=== PATIENT | female | born 1940 | race Caucasian/White ===

== ENCOUNTER 2018-01-29 13:32 | Inpatient (IN) ==
[2018-01-29 15:44] LABS: Apearance,Urine CLEAR (Clear); Bilirubin,Urine Negative (Negative); Blood, Urine Negative (Negative); Glucose,Urine (UA) Negative (Negative); Ketones,Urine Negative (Negative); Nitrite,Urine Negative (Negative); Protein,Urine Negative; RBC,Urine <1 /HPF (0-4); Squamous Epithelial Cell,Urine Occasional /HPF (0-10); Urine Color Yellow (Yellow); Urine Specific Gravity 1.003 (1.001-1.035); WBC,Urine 3 /HPF (0-6)
[2018-01-29] MEDS ORDERED: LEVOFLOXACIN INJ 500 MG in PREMIX 1 EACH IV STA (17:08)
[2018-01-29] MEDS ORDERED: LEVOFLOXACIN INJ 100 ML IV ONE (17:13)
[2018-01-29] MEDS ORDERED: PROMETHAZINE 25 MG/1 ML VIAL IM PRN (17:13)
[2018-01-29] MEDS ORDERED: GLUCAGON 1 MG VIAL IM PRN (17:47)
[2018-01-29] MEDS ORDERED: DEXTROSE 50% 25 GM/50 ML VIAL IV PRN (17:47)
[2018-01-29 17:59] LABS: Albumin 2.4 G/DL (3.4-5.0); Bilirubin,Direct 0.3 MG/DL (0.0-0.20); Bilirubin,Indirect 0.3 MG/DL (0.0-1.0); Bilirubin,Total 0.6 MG/DL (0.2-1.0); Total Protein 7.4 G/DL (6.4-8.3)
[2018-01-29] MEDS ORDERED: ACETAMINOPHEN 500 MG TABLET PO PRN (19:38)
[2018-01-29] MEDS ORDERED: MONTELUKAST 10 MG TABLET PO PRN (19:38)
[2018-01-29] MEDS ORDERED: CYANOCOBALAMIN 1000 MCG/1 ML VIAL IM SCH (20:00)
[2018-01-29] MEDS: metroNIDAZOLE INJ 500 MG in PREMIX 1 EACH IV SCH (20:49)
[2018-01-29] MEDS: SODIUM CHLORIDE 0.9% 1,000 ML IV SCH (20:49)
[2018-01-29] MEDS: ACETAMINOPHEN 325 MG TABLET PO PRN ×2 (20:53→23:12)
[2018-01-29] MEDS ORDERED: COLCHICINE 0.6 MG TABLET PO PRN (21:00)
[2018-01-29 22:53] LABS: Thyroid Stimulating Hormone 3.11 uIU/ml (0.358-3.74)
[2018-01-29] MEDS: ASPIRIN EC 81 MG TABLET PO SCH (23:03)
[2018-01-29] MEDS: cefOXitin 2,000 MG in SYRINGE 1 EACH IV SCH (23:05)
[2018-01-29] MEDS: MULTIVITAMIN (BEROCCA) TABLET PO SCH (23:06)
[2018-01-29] MEDS: INSULIN LISPRO 100 UNIT/ML SUBCUT SCH (23:06)
[2018-01-29] MEDS: FERROUS SULFATE 325 MG TABLET PO SCH (23:06)
[2018-01-29] MEDS: CHOLECALCIFEROL 1,000 UNIT TABLET PO SCH (23:06)
[2018-01-29] MEDS: MAGNESIUM OXIDE 400 MG TABLET PO SCH (23:06)
[2018-01-29] MEDS: GABAPENTIN 300 MG CAPSULE PO SCH (23:06)
[2018-01-29] MEDS: CARVEDILOL 12.5 MG TABLET PO SCH (23:12)
[2018-01-29 23:40] LABS: Lactic Acid 0.8 MMOL/L (0.4-2.0)
[2018-01-30] MEDS: ACETAMINOPHEN 325 MG TABLET PO PRN ×2 (01:53→16:07)
[2018-01-30] MEDS: GABAPENTIN 300 MG CAPSULE PO SCH ×2 (01:56→20:55)
[2018-01-30] MEDS: metroNIDAZOLE INJ 500 MG in PREMIX 1 EACH IV SCH ×3 (01:58→17:33)
[2018-01-30] MEDS: cefOXitin 2,000 MG in SYRINGE 1 EACH IV SCH ×4 (02:16→20:55)
[2018-01-30 05:43] LABS: Basophils % 0.2 % (0.0-0.8); Eosinophils # 0.1 10*3/uL (0.0-0.87); Eosinophils % 0.6 % (0.00-10.9); Hematocrit 25.5 VOL% (35.7-47.0); Hemoglobin 8.5 GM/DL (12.0-16.0); Immature Granulocytes % 0.7 %; Immature Granulocytes Absolute 0.08 #; Lymphocytes # 1.4 10*3/uL (1.4-4.0); Lymphocytes % 11.5 % (21.3-54.2); Mean Corpuscular HGB Conc 33.3 GM/DL (32-36); Mean Corpuscular Hemoglobin 28 PG (27-34); Mean Corpuscular Volume 83.6 FL (87-102); Mean Platelet Volume 9.7 FL (9.6-12.0); Monocytes # 0.9 10*3/uL (0.11-0.8); Monocytes % 7.4 % (1.7-12.7); Neutrophils # 9.3 10*3/uL (1.4-7.4); Neutrophils % 79.6 % (38.7-73.9); Platelet Count 304 T/CUMM (130-400); Red Blood Count 3.05 MC/CUMM (3.8-5.5); Red Cell Distribution Width 16.8 % (9.3-17.3); White Blood Count 11.7 T/CUMM (4-12)
[2018-01-30 06:12] LABS: Bilirubin,Total 1.1 MG/DL (0.2-1.0); Calcium 8.1 MG/DL (8.5-10.1); Osmolality,Calculated 277.4 MOS/KG (273-304); Potassium 3.6 MMOL/L (3.5-5.1); Total Protein 5.9 G/DL (6.4-8.3)
[2018-01-30] MEDS: SODIUM CHLORIDE 0.9% 1,000 ML IV SCH ×3 (06:33→17:35)
[2018-01-30] MEDS: IPRATROPIUM 500 MCG/2.5 ML NEB RESP TX SCH ×4 (08:01→19:23)
[2018-01-30] MEDS: LEVOTHYROXINE 88 MCG TABLET PO SCH (08:15)
[2018-01-30] MEDS ORDERED: fentaNYL 100 MCG/2 ML VIAL IV ONE (08:26)
[2018-01-30] MEDS: CARVEDILOL 12.5 MG TABLET PO SCH ×2 (08:26→16:07)
[2018-01-30] MEDS: FUROSEMIDE 20 MG TABLET PO SCH (08:26)
[2018-01-30] MEDS: CALCIUM (CARBONATE)/VITAMIN D 500 MG-200 UNIT TABLET PO SCH (08:26)
[2018-01-30] MEDS ORDERED: MIDAZOLAM 2 MG/2 ML VIAL IV ONE (08:26)
[2018-01-30] MEDS: ALLOPURINOL 300 MG TABLET PO SCH (08:27)
[2018-01-30] MEDS: INSULIN LISPRO 100 UNIT/ML SUBCUT SCH ×4 (08:27→20:58)
[2018-01-30] MEDS ORDERED: VORTIOXETINE HYDROBROMIDE 10 MG PO SCH (09:00)
[2018-01-30] MEDS ORDERED: DIAZEPAM 5 MG TABLET PO ONE (09:11)
[2018-01-30] MEDS ORDERED: MIDAZOLAM 2 MG/2 ML VIAL ONE (13:22)
[2018-01-30] MEDS ORDERED: fentaNYL 100 MCG/2 ML VIAL ONE (13:22)
[2018-01-30] MEDS ORDERED: CLINDAMYCIN INJ 600 MG in PREMIX 1 EACH IV ONE (13:46)
[2018-01-30] MEDS: CHOLECALCIFEROL 1,000 UNIT TABLET PO SCH (20:54)
[2018-01-30] MEDS: MAGNESIUM OXIDE 400 MG TABLET PO SCH (20:55)
[2018-01-30] MEDS: MULTIVITAMIN (BEROCCA) TABLET PO SCH (20:55)
[2018-01-30] MEDS: FERROUS SULFATE 325 MG TABLET PO SCH (21:00)
[2018-01-30] MEDS: FLUTICASONE/SALMETEROL 250-50 DISKUS 14 DOSE INH SCH (21:02)
[2018-01-30] MEDS: ASPIRIN EC 81 MG TABLET PO SCH (21:02)
[2018-01-31] MEDS: ACETAMINOPHEN 325 MG TABLET PO PRN (02:32)
[2018-01-31] MEDS: cefOXitin 2,000 MG in SYRINGE 1 EACH IV SCH ×4 (02:49→20:50)
[2018-01-31] MEDS: metroNIDAZOLE INJ 500 MG in PREMIX 1 EACH IV SCH ×3 (03:05→17:25)
[2018-01-31] MEDS: SODIUM CHLORIDE 0.9% 1,000 ML IV SCH ×2 (05:55→15:44)
[2018-01-31] MEDS: oxyCODONE/ACETAMINOPHEN 5-325 MG TABLET PO PRN ×4 (06:45→21:37)
[2018-01-31] MEDS: IPRATROPIUM 500 MCG/2.5 ML NEB RESP TX SCH ×4 (07:05→19:40)
[2018-01-31] MEDS: LEVOTHYROXINE 88 MCG TABLET PO SCH (08:23)
[2018-01-31] MEDS: INSULIN LISPRO 100 UNIT/ML SUBCUT SCH ×4 (08:23→21:52)
[2018-01-31] MEDS: FLUTICASONE/SALMETEROL 250-50 DISKUS 14 DOSE INH SCH ×2 (08:24→21:52)
[2018-01-31] MEDS: FUROSEMIDE 20 MG TABLET PO SCH (08:24)
[2018-01-31] MEDS: ALLOPURINOL 300 MG TABLET PO SCH (08:24)
[2018-01-31] MEDS: CARVEDILOL 12.5 MG TABLET PO SCH ×2 (08:24→17:09)
[2018-01-31] MEDS: CALCIUM (CARBONATE)/VITAMIN D 500 MG-200 UNIT TABLET PO SCH (08:24)
[2018-01-31 10:43] LABS: Basophils % 0.2 % (0.0-0.8); Eosinophils # 0.1 10*3/uL (0.0-0.87); Eosinophils % 0.9 % (0.00-10.9); Hematocrit 27.1 VOL% (35.7-47.0); Hemoglobin 8.6 GM/DL (12.0-16.0); Immature Granulocytes % 1.3 %; Immature Granulocytes Absolute 0.14 #; Lymphocytes # 1.7 10*3/uL (1.4-4.0); Mean Corpuscular HGB Conc 31.7 GM/DL (32-36); Mean Corpuscular Hemoglobin 28 PG (27-34); Mean Corpuscular Volume 87.7 FL (87-102); Mean Platelet Volume 9.6 FL (9.6-12.0); Monocytes # 0.7 10*3/uL (0.11-0.8); Monocytes % 6.1 % (1.7-12.7); Neutrophils # 8.4 10*3/uL (1.4-7.4); Neutrophils % 76.5 % (38.7-73.9); Platelet Count 271 T/CUMM (130-400); Red Blood Count 3.09 MC/CUMM (3.8-5.5)
[2018-01-31 11:05] LABS: Calcium 8.3 MG/DL (8.5-10.1); Osmolality,Calculated 274.5 MOS/KG (273-304); Potassium 3.9 MMOL/L (3.5-5.1)
[2018-01-31] MEDS: VALSARTAN 160 MG TABLET PO SCH ×2 (11:34→21:39)
[2018-01-31] MEDS: GABAPENTIN 300 MG CAPSULE PO SCH (21:38)
[2018-01-31] MEDS: MAGNESIUM OXIDE 400 MG TABLET PO SCH (21:38)
[2018-01-31] MEDS: FERROUS SULFATE 325 MG TABLET PO SCH (21:39)
[2018-01-31] MEDS: MELATONIN 3 MG TABLET PO SCH (21:39)
[2018-01-31] MEDS: ASPIRIN EC 81 MG TABLET PO SCH (21:39)
[2018-01-31] MEDS: MULTIVITAMIN (BEROCCA) TABLET PO SCH (21:39)
[2018-01-31] MEDS: ONDANSETRON 4 MG/2 ML VIAL IV PRN (21:41)
[2018-01-31] MEDS: CHOLECALCIFEROL 1,000 UNIT TABLET PO SCH (21:42)
[2018-02-01] MEDS: oxyCODONE/ACETAMINOPHEN 5-325 MG TABLET PO PRN ×3 (01:31→20:46)
[2018-02-01] MEDS: metroNIDAZOLE INJ 500 MG in PREMIX 1 EACH IV SCH ×3 (01:31→17:06)
[2018-02-01] MEDS: SODIUM CHLORIDE 0.9% 1,000 ML IV SCH ×3 (02:24→16:47)
[2018-02-01] MEDS: cefOXitin 2,000 MG in SYRINGE 1 EACH IV SCH ×4 (02:47→20:46)
[2018-02-01 04:40] LABS: Basophils % 0.3 % (0.0-0.8); Eosinophils # 0.1 10*3/uL (0.0-0.87); Eosinophils % 1.2 % (0.00-10.9); Hematocrit 23.9 VOL% (35.7-47.0); Hemoglobin 7.9 GM/DL (12.0-16.0); Immature Granulocytes % 1.4 %; Immature Granulocytes Absolute 0.16 #; Lymphocytes # 1.5 10*3/uL (1.4-4.0); Lymphocytes % 13.3 % (21.3-54.2); Mean Corpuscular HGB Conc 33.1 GM/DL (32-36); Mean Corpuscular Hemoglobin 28 PG (27-34); Mean Corpuscular Volume 85.1 FL (87-102); Mean Platelet Volume 9.6 FL (9.6-12.0); Monocytes # 0.7 10*3/uL (0.11-0.8); Monocytes % 6.2 % (1.7-12.7); Neutrophils # 8.9 10*3/uL (1.4-7.4); Neutrophils % 77.6 % (38.7-73.9); Platelet Count 295 T/CUMM (130-400); Red Blood Count 2.81 MC/CUMM (3.8-5.5); Red Cell Distribution Width 16.8 % (9.3-17.3); White Blood Count 11.4 T/CUMM (4-12)
[2018-02-01 05:14] LABS: Calcium 7.5 MG/DL (8.5-10.1); Potassium 3.3 MMOL/L (3.5-5.1)
[2018-02-01] MEDS: LEVOTHYROXINE 88 MCG TABLET PO SCH (06:00)
[2018-02-01] MEDS: IPRATROPIUM 500 MCG/2.5 ML NEB RESP TX SCH ×4 (07:28→19:37)
[2018-02-01] MEDS: INSULIN LISPRO 100 UNIT/ML SUBCUT SCH ×4 (09:17→20:48)
[2018-02-01] MEDS: FLUTICASONE/SALMETEROL 250-50 DISKUS 14 DOSE INH SCH ×2 (09:52→20:48)
[2018-02-01] MEDS ORDERED: SODIUM CHLORIDE 0.9% 100 ML IV ONE (10:32)
[2018-02-01] MEDS: FUROSEMIDE 20 MG TABLET PO SCH (10:33)
[2018-02-01] MEDS: VALSARTAN 160 MG TABLET PO SCH ×2 (10:33→20:46)
[2018-02-01] MEDS: CARVEDILOL 12.5 MG TABLET PO SCH ×2 (10:33→17:06)
[2018-02-01] MEDS: CALCIUM (CARBONATE)/VITAMIN D 500 MG-200 UNIT TABLET PO SCH (10:33)
[2018-02-01] MEDS: ALLOPURINOL 300 MG TABLET PO SCH (10:34)
[2018-02-01] MEDS: POTASSIUM CHLORIDE 20 MEQ TABLET PO PRN ×3 (17:23→20:46)
[2018-02-01] MEDS: MELATONIN 3 MG TABLET PO SCH (20:46)
[2018-02-01] MEDS: ASPIRIN EC 81 MG TABLET PO SCH (20:46)
[2018-02-01] MEDS: MAGNESIUM OXIDE 400 MG TABLET PO SCH (20:46)
[2018-02-01] MEDS: GABAPENTIN 300 MG CAPSULE PO SCH (20:46)
[2018-02-01] MEDS: FERROUS SULFATE 325 MG TABLET PO SCH (20:47)
[2018-02-01] MEDS: MULTIVITAMIN (BEROCCA) TABLET PO SCH (20:47)
[2018-02-01] MEDS: CHOLECALCIFEROL 1,000 UNIT TABLET PO SCH (20:47)
[2018-02-02] MEDS: oxyCODONE/ACETAMINOPHEN 5-325 MG TABLET PO PRN ×2 (01:45→09:15)
[2018-02-02] MEDS: metroNIDAZOLE INJ 500 MG in PREMIX 1 EACH IV SCH ×2 (01:46→10:22)
[2018-02-02] MEDS: cefOXitin 2,000 MG in SYRINGE 1 EACH IV SCH ×2 (02:52→09:17)
[2018-02-02] MEDS: LEVOTHYROXINE 88 MCG TABLET PO SCH (06:06)
[2018-02-02] MEDS: IPRATROPIUM 500 MCG/2.5 ML NEB RESP TX SCH ×4 (07:43→16:25)
[2018-02-02] MEDS: ALLOPURINOL 300 MG TABLET PO SCH (09:15)
[2018-02-02] MEDS: CARVEDILOL 12.5 MG TABLET PO SCH (09:15)
[2018-02-02] MEDS: VALSARTAN 160 MG TABLET PO SCH (09:15)
[2018-02-02] MEDS: INSULIN LISPRO 100 UNIT/ML SUBCUT SCH ×2 (09:15→11:32)
[2018-02-02] MEDS: CALCIUM (CARBONATE)/VITAMIN D 500 MG-200 UNIT TABLET PO SCH (09:16)
[2018-02-02] MEDS: FLUTICASONE/SALMETEROL 250-50 DISKUS 14 DOSE INH SCH (09:16)
[2018-02-02] MEDS: ONDANSETRON 4 MG/2 ML VIAL IV PRN (09:16)
[2018-02-02] MEDS: FUROSEMIDE 20 MG TABLET PO SCH (09:16)
[2018-02-02 12:48] VITALS: BP 135/76
== END 2018-02-02 11:45 | disposition home health service (06) | DRG 392 ==
LOC: N.ED 13:32 → N.EDINP 16:42 → N.3E 19:34